=== PATIENT | female | born 1990 | race Caucasian/White ===

== ENCOUNTER 2025-06-21 18:27 | Inpatient (IN) | payer MEDICAID, OTHER ==
[~2025-06-21] VITALS: Ht 172.7 cm; Wt 108.6 kg
[2025-06-21] MEDS ORDERED: WITCH HAZEL-GLYCERIN PAD TOP PRN (19:45)
[2025-06-21 19:54] LABS: Hematocrit 30.2 % (36.0-46.0); Hemoglobin 9.2 g/dL (12.2-16.2); Mean Corpuscular Hemoglobin 22.5 pg (28.0-32.0); Mean Corpuscular Volume 73.5 fL (80.0-100.0); Nucleated Red Blood Cells % 0.4 %
--- NOTE | 2025-06-21 19:58 | LDN2 ---
Labor and Delivery Note Date 06/21/25 Age 34 2 Para 1->2 EDC 07/19/2025 EGA 36w0d Diagnosis , compound hand presentation Vaginal Delivery: VTX Vacuum Assisted: No Placenta: Spontaneous (jitendra) Sex: Female Weight 3070g / 6 lbs, 12 oz Apgars 8/8 Nuchal Cord Transected: No Amniotic Fluid: Clear Anesthesia local lidocaine Episiotomy: No Extension: No Repaired with 3-[address]-1 EBL 200mL in drape Labs Laboratory Tests 06/21/25 18:31: Comments/Significant Med Raman At 1849 this 34yo now delivered a viable Female infant by w/ APGARS 8/8. LUCERO with compound presentation of the R hand. taken immediately to warmer to be seen by NICU team and at patient's request Cord blood sent. Intact 3-vessel cord and intact placenta (Jitendra), delivered spontaneously Pitocin IV bolus started. Placenta sent to pathology. Patient pain was well managed Cervix inspected and intact. Perineum intact. R labial laceration noted and repaired in the usual fashion after administration of local lidocaine. Rectal mucosa and sphincter intact. Fundus at U, firm, midline, and light lochia. Straight catheter for 150 mL of clear urine. QBL 200ml in drape. Maternal BPs elevated and labile. Count correct x2. Patient to care and baby to nursery for pending transfer and safe surrender Visit Coding OBGYN Date of Service: Jun 21, 2025 Billing Provider: MITCHELL GENTILE CNM PATIENT CARE TECHNICIAN INSTRUCTOR Common Visit Codes: [id number] INP/OBS CARE (HIGH) PATIENT CARE TECHNICIAN INSTRUCTOR Procedure Codes: 23524-EUR DEL INCLUDING MITCHELL GENTILE CNM Jun 21, 2025 19:58
[2025-06-21 20:00] LABS: Urine Protein, UAD 3+ (Negative)
[2025-06-21] MEDS ORDERED: hydrALAZINE HCL 20 MG/ML VL IV ONE (20:00)
[2025-06-21] MEDS: LIDOCAINE 2%HCL (LOCAL ANESTH.) INJ 20ML MDV IJ PRN (20:04)
[2025-06-21] MEDS: LACTATED RINGER'S 1,000 ML IV SCH (20:04)
[2025-06-21 20:05] LABS: Cannabinoid Screen, Urine Neg (NEGATIVE)
[2025-06-21 20:09] LABS: Alanine Aminotransferase 16 U/L (7-40); Anion Gap 12 (5-15); BUN/Creatinine Ratio 20.0 (10.0-20.0); Glucose 92 mg/dL (74-106); Potassium 3.7 mmol/L (3.5-5.1); Sodium 139 mmol/L (136-145)
[2025-06-21 20:10] LABS: Albumin 3.1 g/dL (3.2-4.8); Alkaline Phosphatase 231 U/L (46-116); Bilirubin, Total 0.2 mg/dL (0.2-1.0); Blood Urea Nitrogen 24 mg/dL (9-23); Calcium 8.1 mg/dL (8.7-10.4); Carbon Dioxide 19 mmol/L (20-31); Chloride 108 mmol/L (98-107); INR 0.86 (0.9-1.15); Partial Thromboplastin Time 26.2 SEC (24.5-34.5); Prothrombin Time 9.3 sec (9.3-11.8); Total Protein 5.7 g/dL (5.7-8.2); Uric Acid 9.8 mg/dL (3.1-7.8)
[2025-06-21 20:10] LABS: Amphetamine Screen, Urine Pos (NEGATIVE); Barbiturate Scree,Urine Neg (NEGATIVE); Benzodiazephine Screen, Urine Neg (NEGATIVE); Cocaine Screen, Urine Neg (NEGATIVE); Opiate Scree,Urine Neg (NEGATIVE); Phencyclidine Screen, Urine Neg (NEGATIVE)
[2025-06-21] MEDS: DERMOPLAST 60ML BOTTLE TOP PRN (20:24)
[2025-06-21] MEDS: IBUPROFEN 600 MG TAB PO PRN (20:24)
[2025-06-21] MEDS: PHISODERM TOP SOLN 240ML BTL TOP PRN (20:24)
[2025-06-21] MEDS: LACT. RINGERS/OXYTOCIN 20UNITS 500 ML IV ONE ×2 (21:18→21:19)
[2025-06-21] MEDS: MAGNESIUM SULFATE 40MG/ML 1,000 ML IV SCH (21:58)
--- NOTE | 2025-06-21 22:33 | DVH ---
INDICATION: Swelling on bilateral lower extremities TECHNIQUE: Frontal view of the chest. COMPARISON: None FINDINGS/IMPRESSION: The lungs are clear. The cardiomediastinal silhouette is unremarkable. No pleural effusion or pneumothorax. No acute osseous abnormality.
[2025-06-21] MEDS: ACETAMINOPHEN 325 MG TAB PO PRN (22:35)
[2025-06-21 23:00] VITALS: BP 141/89; PULSE 86; RESP 18; TEMP 97.9; O2SAT 100
[2025-06-22] VITALS (43 sets, daily range): BP systolic 106–148; BP diastolic 31–93; PULSE 72–101; RESP 12–24; TEMP 96.5–98.3; O2SAT 96–100
--- NOTE | 2025-06-22 01:41 | DVHPN2 ---
Progress Note Date Seen: Jun 22, 2025 Subjective Shanice is resting in bed SUBJECTIVE -Lochia minimal -Tolerating regular diet well. -Pain relieved with oral medication PRN -Not ambulating at this time r/t magnesium infusion. Torres catheter in place -Passing flatus but no BM yet -Would like to suppress vital signs Vital Sign Date Time Temp Pulse Resp B/P (MAP) Pulse Ox O2 Delivery O2 Flow Rate FiO2 06/22/25 00:00 16 98 Room Air 06/21/25 23:00 97.9 86 141/89 (106) 97.9 Total Intake and Output 06/21/25 06/21/25 06/22/25 15:00 23:00 07:00 Intake Total 125 ml 125 ml Output Total 100 ml 95 ml Balance 25 ml 30 ml medications Current Medications Medications Dose Ordered Sig/Gonzalo Route Start Time Stop Time Status Last Admin Dose Admin Lactated Ringer's 1,000 ml @ 125 mls/hr Q8H IV 06/21/25 19:45 06/21/25 20:04 125 MLS/HR Witch Akiko 1 pad PRN PRN TOP 06/21/25 19:45 Sodium Lauryl Sulfate 240 ml PRN PRN TOP 06/21/25 19:45 06/21/25 20:24 240 ML Benzocaine 1 applic PRN PRN TOP 06/21/25 19:45 06/21/25 20:24 1 APPLIC Lidocaine HCl 20 ml ONCE PRN IJ 06/21/25 19:45 06/21/25 20:04 20 ML Ibuprofen 600 mg Q6HP PRN PO 06/21/25 19:45 06/21/25 20:24 600 MG Acetaminophen 650 mg Q4HP PRN PO 06/21/25 19:45 06/21/25 22:35 650 MG Magnesium Sulfate 1,000 ml @ 50 mls/hr Q20H IV 06/21/25 21:30 06/21/25 21:58 50 MLS/HR laboratory and microbiology Laboratory Tests 06/21/25 18:31 Test 06/21/25 18:31 Range/Units Serum Glucose 92 74-106 mg/dL Objective OBJECTIVE -A&O x4. No apparent distress. Affect appropriate -Afebrile, VSS -Chest: heart and lung sounds normal. -Breasts: Nipples intact w/o cracks or soreness -Abdomen: normal BS, soft, non-tender, no rebound or guarding, fundus firm @ U- 1, lochia minimal -Perineum: deferred -Extremities: no edema or tenderness Problems(with codes): (1) Normal spontaneous vaginal delivery (2) Laceration of labia minora (3) Methamphetamine abuse Assessment/Plan ASSESSMENT -34 yo now ppd #1 s/p doing well. - Suppression -No care -Drug Use in (methamphetamine, heroin, THC, DMT) PLAN -Consulting with Dr Lauren. -Continue pain management with oral medications as previously ordered -Increase fluid intake and fiber in diet to promote regular bowel movements, Laxative PRN -Discussed suppression. Answered all patient questions and concerns. -Order social service consult -Continue routine care Plan discussed with: Patient Visit Coding OBGYN Date of Service: Jun 22, 2025 Billing Provider: MITCHELL GENTILE CNM HEATER MECHANIC Common Visit Codes: [id number] INP/OBS CARE(MOD) MITCHELL GENTILE CNM Jun 22, 2025 01:41
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
--- NOTE | 2025-06-22 03:52 | ECG ---
[facility] Test Date: 2025-06-22 Test Time: 03:44:31 Pat Name: FROY LEOS Department: ED Room: [facility] Gender: F Internal Communications Writer: CIARA : 1990 Requested By: MITCHELL GENTILE Order Number: [id number] Reading MD: Lamine Mathew Measurements Intervals [place] Rate: 93 P: 56 [place]: 139 QRS: 62 QRSD: 94 T: 45 QT: 384 QTc: 478 Interpretive Statements Sinus rhythm Borderline T abnormalities, anterior leads Borderline prolonged QT interval Electronically Signed On 06-28-2025 18:55:34 PST by Lamine Mathew Please click the below link to view image of tracing.
[2025-06-22] MEDS: MAGNESIUM SULFATE 100 ML IV ONE (04:38)
[2025-06-22] MEDS ORDERED: ONDANSETRON HCL 4 MG/2 ML VIAL IV PRN (07:00)
[2025-06-22] MEDS: LABETALOL HCL 200 MG TAB PO SCH (07:46)
--- NOTE | 2025-06-22 08:42 | DVHHP2 ---
Review of Systems Allergies: Coded Allergies: NO KNOWN ALLERGIES (Unverified , 06/21/25) Medications Current Medications Medications Dose Ordered Sig/Gonzalo Route Start Time Stop Time Status Last Admin Dose Admin Lactated Ringer's 1,000 ml @ 125 mls/hr Q8H IV 06/21/25 19:45 06/21/25 20:04 125 MLS/HR Witch Akiko 1 pad PRN PRN TOP 06/21/25 19:45 Sodium Lauryl Sulfate 240 ml PRN PRN TOP 06/21/25 19:45 06/21/25 20:24 240 ML Benzocaine 1 applic PRN PRN TOP 06/21/25 19:45 06/21/25 20:24 1 APPLIC Lidocaine HCl 20 ml ONCE PRN IJ 06/21/25 19:45 06/21/25 20:04 20 ML Ibuprofen 600 mg Q6HP PRN PO 06/21/25 19:45 06/21/25 20:24 600 MG Acetaminophen 650 mg Q4HP PRN PO 06/21/25 19:45 06/21/25 22:35 650 MG Magnesium Sulfate 1,000 ml @ 50 mls/hr Q20H IV 06/21/25 21:30 06/21/25 21:58 50 MLS/HR Ondansetron HCl 4 mg Q4HPRN PRN IV 06/22/25 07:00 Labetalol HCl 300 mg Q12HR PO 06/22/25 10:00 06/22/25 07:46 300 MG Exam Vital Signs Vital Signs Date Time Temp Pulse Resp B/P (MAP) Pulse Ox O2 Delivery O2 Flow Rate FiO2 06/22/25 07:46 104 158/91 06/22/25 05:00 16 100 06/22/25 05:00 Room Air 06/22/25 03:00 98.1 98.1 Labs/Xrays Labs Test 06/22/25 07:05 06/22/25 03:49 06/21/25 21:01 06/21/25 19:30 Range/Units Troponin I High Sensitivity 8 </=34 ng/L Magnesium Lvl (Mg Sulfate Therapy) 4.34 4.0-7.1 mg/dL B-Type Natriuretic Peptide 159.19 0-100 pg/mL Uric Acid 9.8 H 3.1-7.8 mg/dL Urine Color Yellow Yellow Urine Clarity Turbid H Clear Urine pH 6.0 5.0-9.0 Urine Specific [place] 1.039 H 1.001-1.035 Urine Protein 3+ H Negative Urine Ketones Negative Negative Urine Blood 2+ H Negative /uL Urine Nitrite Negative Negative Urine Bilirubin Negative Negative Urine Urobilinogen Normal Negative mg/dL Urine Leukocyte Esterase Negative Negative /uL Urine RBC 45 0 - 4 /hpf Urine Microscopic WBC 36 H 0-5 /HPF Urine Squamous Epithelial Cells None seen <5 /hpf Urine Bacteria Many H None Seen /hpf Urine Mucus Few None Seen Urine Creatinine 220.36 H 30.0-125.0 mg/dL Urine Protein/Creatinine Ratio 8.52 Urine Glucose Normal Normal mg/dL Urine Total Protein 1878.1 H 1-14 mg/dL Urine Opiates Screen Neg NEGATIVE Urine Fentanyl Screen Neg NEGATIVE Urine Barbiturates Screen Neg NEGATIVE Urine Phencyclidine Screen Neg NEGATIVE Urine Amphetamines Screen Pos NEGATIVE Urine Benzodiazepines Screen Neg NEGATIVE Urine Cocaine Screen Neg NEGATIVE Urine Cannabinoids Screen Neg NEGATIVE Test 06/21/25 18:31 Range/Units White Blood Count 14.4 H 4.4-10.8 10^3/uL Red Blood Count 4.11 4.0-5.20 10^6/uL Hemoglobin 9.2 L 12.2-16.2 g/dL Hematocrit 30.2 L 36.0-46.0 % Mean Corpuscular Volume 73.5 L 80.0-100.0 fL Mean Corpuscular Hemoglobin 22.5 L 28.0-32.0 pg Mean Corpuscular Hemoglobin Concent 30.6 L 32.0-36.0 g/dL Red Cell Distribution Width 17.9 H 11.8-14.3 % Platelet Count 360 140-450 10^3/uL Mean Platelet Volume 9.1 6.9-10.8 fL Neutrophils (%) (Auto) 69.3 37.0-80.0 % Lymphocytes (%) (Auto) 23.8 10.0-50.0 % Monocytes (%) (Auto) 5.9 0.0-12.0 % Eosinophils (%) (Auto) 0.3 0.0-7.0 % Basophils (%) (Auto) 0.7 0.0-2.0 % Neutrophils # (Auto) 10.0 H 1.6-8.6 10 ^3/uL Lymphocytes # (Auto) 3.4 0.4-5.4 10 ^3/uL Monocytes # (Auto) 0.8 0-1.3 10 ^3/uL Eosinophils # (Auto) 0 0-0.8 10 ^3/uL Basophils # (Auto) 0.1 0-0.2 10 ^3/uL Nucleated Red Blood Cells 0.4 % Prothrombin Time 9.3 9.3-11.8 sec Prothrombin Time INR 0.86 L 0.9-1.15 Activated Partial Thromboplast Time 26.2 24.5-34.5 SEC Sodium Level 139 136-145 mmol/L Potassium Level 3.7 3.5-5.1 mmol/L Chloride Level 108 H 98-107 mmol/L Carbon Dioxide Level 19 L 20-31 mmol/L Anion Gap 12 5-15 Blood Urea Nitrogen 24 H 9-23 mg/dL Creatinine 1.20 H 0.550-1.02 mg/dL Glomerular Filtration Rate Calc 61 >90 mL/min BUN/Creatinine Ratio 20.0 10.0-20.0 Serum Glucose 92 74-106 mg/dL Calcium Level 8.1 L 8.7-10.4 mg/dL Total Bilirubin 0.2 0.2-1.0 mg/dL Aspartate Amino Transferase (AST) 28 13-40 U/L Alanine Aminotransferase (ALT) 16 7-40 U/L Alkaline Phosphatase 231 H 46-116 U/L Total Protein 5.7 5.7-8.2 g/dL Albumin 3.1 L 3.2-4.8 g/dL Treponema pallidum Antibody Non-reactive Negative Hepatitis B Surface Antigen Negative Negative Hepatitis C Antibody Negative Negative HIV (1&2) Antibody Negative Negative Rubella Antibody Positive SEPSIS Sepsis Screen Physician Orders Magnesium,Therapeutic (06/22/25 10:00) Magnesium,Therapeutic (06/22/25 16:00) Magnesium,Therapeutic (06/22/25 22:00) Ondansetron Hcl (Zofran) (06/22/25 07:00) Labetalol Hcl Tablet (Normodyne Tablet) (06/22/25 10:00) Vital Signs Date Time Temp Pulse Resp B/P (MAP) Pulse Ox O2 Delivery O2 Flow Rate FiO2 06/22/25 07:46 104 158/91 06/22/25 05:00 83 16 145/93 (110) 100 06/22/25 05:00 18 100 Room Air 06/22/25 04:00 83 16 136/76 (96) 100 06/22/25 04:00 16 100 Room Air 06/22/25 03:00 15 99 Room Air 06/22/25 03:00 98.1 85 19 147/80 (102) 100 98.1 06/22/25 02:00 97.6 87 15 136/82 (100) 100 97.6 06/22/25 02:00 18 99 Room Air 06/22/25 01:00 98.1 89 16 147/82 (103) 98 98.1 06/22/25 01:00 15 100 Room Air Medications Medications Dose Ordered Sig/Gonzalo Route Start Time Stop Time Status Last Admin Dose Admin Labetalol HCl 300 mg Q12HR PO 06/22/25 10:00 06/22/25 07:46 300 MG Magnesium Sulfate 100 ml @ 300 mls/hr ONCE ONCE IV 06/22/25 04:30 06/22/25 04:49 DC 06/22/25 04:38 300 MLS/HR Magnesium Sulfate 1,000 ml @ 50 mls/hr Q20H IV 06/21/25 21:30 06/21/25 21:58 50 MLS/HR JUAN JOSÉ REEVES [facility] Jun 22, 2025 08:42
[2025-06-22] MEDS: hydroCHLOROthiazide 25 MG TAB PO ONE (08:45)
[2025-06-22 10:21] LABS: Nucleated Red Blood Cells % 0.2 %
[2025-06-22 10:24] LABS: Hematocrit 19.3 % (36.0-46.0); Mean Corpuscular Hemoglobin 22.5 pg (28.0-32.0); Mean Corpuscular Volume 74.0 fL (80.0-100.0)
[2025-06-22 10:30] LABS: Hemoglobin 5.9 g/dL (12.2-16.2)
[2025-06-22 10:39] LABS: Alanine Aminotransferase 15 U/L (7-40); Anion Gap 8 (5-15); BUN/Creatinine Ratio 17.6 (10.0-20.0); Blood Urea Nitrogen 19 mg/dL (9-23); Carbon Dioxide 20 mmol/L (20-31); Glucose 101 mg/dL (74-106); Potassium 4.9 mmol/L (3.5-5.1); Sodium 136 mmol/L (136-145)
[2025-06-22 10:40] LABS: Albumin 2.3 g/dL (3.2-4.8); Alkaline Phosphatase 135 U/L (46-116); Calcium 7.3 mg/dL (8.7-10.4); Chloride 108 mmol/L (98-107); Total Protein 4.2 g/dL (5.7-8.2); Uric Acid 9.9 mg/dL (3.1-7.8)
--- NOTE | 2025-06-22 10:40 | DVHINCON2 ---
Date of service: Jun 22, [address] Lauren Reason for Consultation Medical co-management & blood pressure management with preeclampsia History of Present Illness History Source: Patient, RN Notes, Notes HPI 34-year-old female with no documented past medical history and surgical history notable only for two prior abortions, 4 para 2 A2, presented to the ED on August 19, 2024, approximately 30 weeks , where she was found to be in active labor. She walked into the ED front entrance and delivered precipitously. Delivery was completed in the [facility] unit. The patient reports she received no care, although she was aware of the and [facility] attempting to pursue an but was unable to follow through. She delivered a viable at 18:49 PM, and the was transferred for safe surrender and subsequently transferred out. Post-delivery, the patient has been resting in OB without significant pain. She reports no vaginal bleeding except for mild old blood staining and some vaginal swelling. She denies chest pain, shortness of breath, headache, or vision changes. Her blood pressure after delivery was 158/91, and she was diagnosed with preeclampsia, started on labetalol 300 mg PO BID, and placed on a magnesium sulfate drip (last level 4.34). Laboratory review from yesterday shows creatinine 1.2, hemoglobin 9.2 / Hct 30.2, platelets 360, estimated blood loss approximately 500 mL, and EKG with normal sinus rhythm. Troponin x3 was negative. White blood cell count was 14.4. LFTs notable for alkaline phosphatase 231, albumin 3.1. Syphilis and hepatitis panel negative. Chest x-ray unremarkable. She denies chest pain, headache, neck pain, or fever. The patient does admit to methamphetamine and marijuana use yesterday and smokes daily. [employer] requested medicine involvement for assistance with blood pressure management and medical co-management . Current Meds no medication Chief Complaint of Abdominal/F: Other (no abd pain ) Chest Pain Chief Complaint: Other (no chest pain ) Initial Comment denies any back pain Initial Comment denies any headache Initial Comment denies any co Past Medical History Cardiac: No pertinent Hx Pulmonary: No pertinent Hx Central Nervous System: No pertinent Hx GI: No pertinent Hx Hemotology/Oncology: No pertinent Hx Hepatobiliary: No pertinent Hx Psychiatric: No pertinent Hx Musculoskeletal: No pertinent Hx Rheumotologic: No pertinent Hx Infectious Disease: No peritnent Hx ENT: No pertinent Hx Renal/: No pertinent Hx Endocrine: No pertinent Hx Dermatology: No pertinent Hx Past Surgical History: No pertinent Hx Family History: No pertinent Hx Smoker: No Hx (Negative) Occupation: unemployed Alocohol: None Drugs: Marijuana, Amphetimines, Other (last use yesterday prior to use ) Lives with: Alone Review of Systems Constitutional: No symptom reported Ears, Nose, & Throat: No symptom reported Eyes: No symptom reported Pulmonary/Respiratory: No symptom reported Cardiovascular: No symptom reported Gastrointestinal: No symptom reported Genitourinary: No symptom reported Musculoskeletal: No symptom reported Skin: No symptom reported Psychiatric: No symptom reported Endocrine: No symptom reported Hemotologic/Lymphatic: No symptom reported H&P Exam Vital Signs Vital Signs Date Time Temp Pulse Resp B/P (MAP) Pulse Ox O2 Delivery O2 Flow Rate FiO2 06/22/25 09:09 16 Room Air 06/22/25 08:46 88 126/83 06/22/25 07:00 98.2 100 98.2 General Appeara: Well developed Head Exam: Normal inspection Neck Exam: Normal inspection Eye Exam: bilateral eye Normal inspection, bilateral eye PERRL, bilateral eye EOMI Nasal Exam: Normal inspection Mouth: Normal Inspection Pulmonary/Respiratory: Normal inspection Cardiovascular/Chest: Normal inspection Abdominal Exam: Normal bowel sounds Abdominal Pain Onset Location: RUQ, LUQ, RLQ, LLQ Back Exam: Normal inspection Pelvic Exam: External exam normal, Blood, Other (some vaginal swelling seen no active bleeding ) Shoulder Exam: Normal inspection Elbow/Forearm Exam: Normal inspection Wrist Exam: Normal inspection Hand Exam: Normal inspection Legs: bilateral leg non-tender, bilateral leg normal inspection, bilateral leg normal range of motion, bilateral leg no evidence of injury Knees: bilateral knee non-tender, bilateral knee normal inspection, bilateral knee normal range of motion, bilateral knee no evidence of injury Ankle Exam: bilateral ankle Normal inspection, bilateral ankle Non-tender, bilateral ankle Normal range of motion, bilateral ankle No evidence of injury Foot: bilateral foot non-tender, bilateral foot normal inspection, bilateral foot normal range of motion, bilateral foot no evidence of injury Tendon/ Neuro: 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 Exam: Normal hearing, Normal speech, PERRL Motor/Sensory: Normal sensory function, Normal motor function, Negative Babinski's sign Deep Tendon Ref: All intact Neuro/Mental St: Alert, Oriented Appearance: Appropriate appearance, Appropriate insight Eye contact/ Speech: Cooperative, Good eye contact, Normal speech Coordination/Gait: Normal finger->nose, Normal gait, Negative Romberg's sign Skin Exam: Normal inspection, Normal color, Warm/dry Lymphatic: Normal inspection Wounds no wounds Labs/Xrays I reviewed labs, imaging CT scan abdomen pelvis, EKG and all diagnostic studies on this patient from ED records and the medical chart Labs Test 06/22/25 09:49 06/22/25 07:05 06/21/25 19:30 06/21/25 18:31 Range/Units Troponin I High Sensitivity 8 </=34 ng/L Urine Color Yellow Yellow Urine Clarity Turbid H Clear Urine pH 6.0 5.0-9.0 Urine Specific [place] 1.039 H 1.001-1.035 Urine Protein 3+ H Negative Urine Ketones Negative Negative Urine Blood 2+ H Negative /uL Urine Nitrite Negative Negative Urine Bilirubin Negative Negative Urine Urobilinogen Normal Negative mg/dL Urine Leukocyte Esterase Negative Negative /uL Urine RBC 45 0 - 4 /hpf Urine Microscopic WBC 36 H 0-5 /HPF Urine Squamous Epithelial Cells None seen <5 /hpf Urine Bacteria Many H None Seen /hpf Urine Mucus Few None Seen Urine Creatinine 220.36 H 30.0-125.0 mg/dL Urine Protein/Creatinine Ratio 8.52 Urine Glucose Normal Normal mg/dL Urine Total Protein 1878.1 H 1-14 mg/dL Urine Opiates Screen Neg NEGATIVE Urine Fentanyl Screen Neg NEGATIVE Urine Barbiturates Screen Neg NEGATIVE Urine Phencyclidine Screen Neg NEGATIVE Urine Amphetamines Screen Pos NEGATIVE Urine Benzodiazepines Screen Neg NEGATIVE Urine Cocaine Screen Neg NEGATIVE Urine Cannabinoids Screen Neg NEGATIVE Eosinophils (%) (Auto) 0.3 0.0-7.0 % Eosinophils # (Auto) 0 0-0.8 10 ^3/uL Basophils # (Auto) 0.1 0-0.2 10 ^3/uL Nucleated Red Blood Cells 0.4 % Treponema pallidum Antibody Non-reactive Negative Hepatitis B Surface Antigen Negative Negative Hepatitis C Antibody Negative Negative HIV (1&2) Antibody Negative Negative Rubella Antibody Positive Assessment/Plan Primary Diagnosis Preeclampsia BP 158/91 ; currently on magnesium sulfate infusion. Continue labetalol 300 mg PO BID. Add hydrochlorothiazide 12.5 mg PO daily for additional BP control. Monitor for severe features: headache, vision changes, RUQ pain, worsening BP. Trend BPs every 4 hours. Continue magnesium infusion per OB protocol; monitor magnesium levels. Avoid NSAIDs due to BP elevation risk. Status, Vaginal Delivery EBL 500 mL; stable course. Monitor for delayed hemorrhage, excessive lochia, infection, or worsening vaginal swelling. Continue routine care per OB. A2 pt delivered baby 06/22/25 at 1849 but baby was sent to [facility] no care prior to delivery Anemia of / Hgb 9.2, stable; no active bleeding. Repeat CBC in AM. Consider iron supplementation when stable. acute leukocytosis likley acute phase reactant from post fu cbc monitor for fever if + infectious workup polySubstance Use (Methamphetamine & Marijuana) Patient admits use the day prior to delivery. No acute intoxication signs now. Provide counseling; social work involvement recommended. Monitor for withdrawal, though unlikely with meth. Elevated LFTs (Alk Phos 231) Likely -related or due to physiologic elevation. Trend CMP, LDH, uric acid. No evidence of HELLP syndrome today. Leukocytosis WBC 14.4; could be physiologic or stress-related. No fever, no infectious symptoms. Repeat CBC in AM; monitor clinically. Hypoalbuminemia Albumin 3.1; likely chronic nutritional or -related. No acute intervention required. DISPOSITION Patient is medically stable and will continue care under OB with Internal Medicine following for blood pressure and lab monitoring. Continue magnesium therapy and antihypertensives. Internal Medicine will follow daily. Plan discussed with: Patient JUAN JOSÉ REEVES Ness HOGN Jun 22, 2025 10:40
[2025-06-22 10:41] LABS: INR 0.83 (0.9-1.15); Partial Thromboplastin Time 27.6 SEC (24.5-34.5); Prothrombin Time 9.0 sec (9.3-11.8)
[2025-06-22 10:45] LABS: Bilirubin, Total 0.2 mg/dL (0.2-1.0)
[2025-06-22 11:01] LABS: Fibrinogen 565.0 mg/dL (177-375)
[2025-06-22 11:27] LABS: Hematocrit 19.7 % (36.0-46.0)
[2025-06-22 11:28] LABS: Hemoglobin 6.0 g/dL (12.2-16.2)
[2025-06-22] MEDS ORDERED: TRANEXAMIC ACID 1,000 mg/10ml INJ VIAL IV ONE (12:27)
--- NOTE | 2025-06-22 15:29 | DVH ---
EXAM: XY CHEST XRAY 1 VIEW HISTORY: preeclampsia COMPARISON: XY CHEST PORTABLE on DOS: 06/21/25 TECHNIQUE: Portable supine AP view of the chest was performed. FINDINGS: No pneumothorax, consolidative infiltrates, or pulmonary edema. The heart is not enlarged. IMPRESSION: No acute intrathoracic process.
[2025-06-22] MEDS: MAGNESIUM SULFATE 40MG/ML 1,000 ML IV SCH ×2 (17:00→18:30)
[2025-06-22] MEDS: LACTATED RINGER'S 1,000 ML IV SCH (17:00)
[2025-06-22 18:21] LABS: COVID19 ANTIGEN SOFIA FIA NEGATIVE (NEGATIVE)
[2025-06-22] MEDS: FLUTICASONE PROP NASAL SPR 0.05 % (50MCG) 16GM EACHNOSTRI SCH (22:05)
[2025-06-22 22:21] LABS: Hematocrit 26.2 % (36.0-46.0); Hemoglobin 8.3 g/dL (12.2-16.2); Mean Corpuscular Hemoglobin 24.6 pg (28.0-32.0); Mean Corpuscular Volume 77.8 fL (80.0-100.0); Nucleated Red Blood Cells % 0.7 %
[2025-06-23] VITALS (37 sets, daily range): BP systolic 103–152; BP diastolic 41–93; PULSE 62–111; RESP 11–23; TEMP 97.4–98.8; O2SAT 89–100
[2025-06-23 02:53] LABS: Hematocrit 22.3 % (36.0-46.0); Hemoglobin 7.3 g/dL (12.2-16.2); Mean Corpuscular Volume 76.7 fL (80.0-100.0); Nucleated Red Blood Cells % 0.4 %
[2025-06-23 02:57] LABS: Mean Corpuscular Hemoglobin 24.9 pg (28.0-32.0)
[2025-06-23 03:12] LABS: Alanine Aminotransferase 13 U/L (7-40); Anion Gap 9 (5-15); BUN/Creatinine Ratio 18.3 (10.0-20.0); Blood Urea Nitrogen 17 mg/dL (9-23); Carbon Dioxide 20 mmol/L (20-31); Potassium 4.6 mmol/L (3.5-5.1); Sodium 138 mmol/L (136-145)
[2025-06-23 03:20] LABS: Magnesium 3.3 mg/dL (1.6-2.6)
[2025-06-23 03:21] LABS: Albumin 2.3 g/dL (3.2-4.8); Alkaline Phosphatase 119 U/L (46-116); Bilirubin, Total 0.2 mg/dL (0.2-1.0); Calcium 7.0 mg/dL (8.7-10.4); Chloride 109 mmol/L (98-107); Glucose 112 mg/dL (74-106); Total Protein 4.2 g/dL (5.7-8.2); Uric Acid 9.5 mg/dL (3.1-7.8)
[2025-06-23] MEDS: LORATADINE 10 MG TAB PO SCH (09:07)
--- NOTE | 2025-06-23 09:35 | DVHPN2 ---
Progress Note Date Seen: Jun 23, 2025 Subjective PPD#2 s/p delivery, no PNL care. s/p # Pre eclampsia w/ severe features (based on serum creat 1.2), improving # Severe acute blood loss anemia , s/p blood transfusion # Amphetamine drug use vital signs Vital Sign Date Time Temp Pulse Resp B/P (MAP) Pulse Ox O2 Delivery O2 Flow Rate FiO2 06/23/25 09:15 75 18 132/64 (86) 100 06/23/25 08:00 Room Air* 0 21 06/23/25 08:00 97.9 97.9 Total Intake and Output 06/22/25 06/22/25 06/23/25 15:00 23:00 07:00 Intake Total 1575 ml 1250 ml Output Total 575 ml 600 ml 2050 ml Balance -575 ml 975 ml -800 ml medications Current Medications Medications Dose Ordered Sig/Gonzalo Route Start Time Stop Time Status Last Admin Dose Admin Mariya Tyel 1 pad PRN PRN TOP 06/21/25 19:45 Sodium Lauryl Sulfate 240 ml PRN PRN TOP 06/21/25 19:45 06/21/25 20:24 240 ML Benzocaine 1 applic PRN PRN TOP 06/21/25 19:45 06/21/25 20:24 1 APPLIC Lidocaine HCl 20 ml ONCE PRN IJ 06/21/25 19:45 06/21/25 20:04 20 ML Ibuprofen 600 mg Q6HP PRN PO 06/21/25 19:45 06/22/25 22:41 600 MG Acetaminophen 650 mg Q4HP PRN PO 06/21/25 19:45 06/22/25 18:53 650 MG Ondansetron HCl 4 mg Q4HPRN PRN IV 06/22/25 07:00 Labetalol HCl 300 mg Q12HR PO 06/22/25 10:00 06/23/25 09:07 300 MG Lactated Ringer's 1,000 ml @ 50 mls/hr Q20H IV 06/22/25 11:15 06/22/25 17:00 50 MLS/HR Fluticasone Propionate 50 mcg Q12HR EACHNOSTRI 06/22/25 22:00 06/23/25 09:06 50 MCG Loratadine 10 mg DAILY PO 06/23/25 10:00 06/23/25 09:07 10 MG laboratory and microbiology Laboratory Tests 06/23/25 02:23 Test 06/23/25 02:23 Range/Units Serum Glucose 112 H 74-106 mg/dL Objective O: AFVSS NO SEVERE RANGE ELEVATED BP's Chest: heart and lung sounds normal. Abd soft, non-tender, fundus firm, BS, no rebound or guarding, Ext Neg Homans, Non-tender, edema Lochia - minimal Labs Reviewed, improving creatinine now normal CXR neg x 2 Assessment/Plan PPD#2 s/p # Pre eclampsia w/ severe features , greatly improved - Serum creatinine normalized, no evidence of HELLP or severe range BP's - Continue Labetalol PO - Mag Sulfate stopped x 24hr # Severe acute blood loss anemia - s/p blood transfusion - check CBC this morning #Amphetamine drug use - pending social svc consult Step down care appropriate to med surg or D/C planning in next 24-48hr if remains stable. Plan discussed with: Patient Visit Coding OBGYN Date of Service: Jun 23, 2025 Billing Provider: BLADIMIR YEH DO DIRECTOR OF VOCATIONAL TRAINING Common Visit Codes: [id number] INP/OBS CARE (HIGH) BLADIMIR YEH DO Jun 23, 2025 09:34
[2025-06-23] MEDS ORDERED: hydroCHLOROthiazide 25 MG TAB PO SCH (10:00)
[2025-06-23 10:34] LABS: Hematocrit 23.6 % (36.0-46.0); Hemoglobin 7.6 g/dL (12.2-16.2); Mean Corpuscular Hemoglobin 24.7 pg (28.0-32.0); Mean Corpuscular Volume 76.8 fL (80.0-100.0); Nucleated Red Blood Cells % 0.1 %
--- NOTE | 2025-06-23 17:06 | DVHPN2 ---
Subjective rested/no tremors/no agitation Changes from previous H/P or p: No Changes Objective Vitals Vital Signs Date Time Temp Pulse Resp B/P (MAP) Pulse Ox O2 Delivery O2 Flow Rate FiO2 06/23/25 16:00 98.8 85 18 134/84 (101) 100 98.8 06/23/25 08:00 Room Air* 0 21 Intake/Output Intake and Output 06/23/25 07:00 Intake Total 2875 ml Output Total 3225 ml Balance -350 ml Intake Oral 900 ml IV Total 775 ml Blood Product 1200 ml Output Urine Total 3225 ml General Appearance: Alert, Oriented X3, Cooperative, No acute distress Lungs: Clear to auscultation Cardiovascular: Regular rate, Normal S1, Normal S2 Abdomen: Normal bowel sounds, Soft, No tenderness, No hepatospenomegaly Musculoskeletal: Normal sensory function, Normal motor function Neuro: Normal gait, Normal speech, Strength at 5/5 X4 ext, Normal tone, S ensation intact, Cranial nerves 3-12 NL Psych/Mental Status: Mental status NL, Mood NL Medications Current Medications Medications Dose Ordered Sig/Gonzalo Route Start Time Stop Time Status Last Admin Dose Admin Witfauzia Akiko 1 pad PRN PRN TOP 06/21/25 19:45 Sodium Lauryl Sulfate 240 ml PRN PRN TOP 06/21/25 19:45 06/21/25 20:24 240 ML Benzocaine 1 applic PRN PRN TOP 06/21/25 19:45 06/21/25 20:24 1 APPLIC Lidocaine HCl 20 ml ONCE PRN IJ 06/21/25 19:45 06/21/25 20:04 20 ML Ibuprofen 600 mg Q6HP PRN PO 06/21/25 19:45 06/22/25 22:41 600 MG Acetaminophen 650 mg Q4HP PRN PO 06/21/25 19:45 06/22/25 18:53 650 MG Ondansetron HCl 4 mg Q4HPRN PRN IV 06/22/25 07:00 Labetalol HCl 300 mg Q12HR PO 06/22/25 10:00 06/23/25 09:07 300 MG Fluticasone Propionate 50 mcg Q12HR EACHNOSTRI 06/22/25 22:00 06/23/25 09:06 50 MCG Loratadine 10 mg DAILY PO 06/23/25 10:00 06/23/25 09:07 10 MG Laboratory Results Laboratory Tests 06/23/25 02:23 06/23/25 10:18 Chemistry Test 06/23/25 02:23 Albumin 2.3 g/dL (3.2-4.8) L Calcium Level 7.0 mg/dL (8.7-10.4) L Magnesium Level 3.3 mg/dL (1.6-2.6) H Phosphorus Level 3.8 mg/dL (2.4-5.1) Total Protein 4.2 g/dL (5.7-8.2) L LFT Test 06/23/25 02:23 Alanine Aminotransferase (ALT) 13 U/L (7-40) Alkaline Phosphatase 119 U/L (46-116) H Aspartate Amino Transferase (AST) 24 U/L (13-40) Total Bilirubin 0.2 mg/dL (0.2-1.0) Urinalysis Test 06/21/25 19:30 Urine Color Yellow (Yellow) Urine Clarity Turbid (Clear) H Urine pH 6.0 (5.0-9.0) Urine Specific [place] 1.039 (1.001-1.035) Urine Protein 3+ (Negative) H Urine Ketones Negative (Negative) Urine Blood 2+ /uL (Negative) H Urine Nitrite Negative (Negative) Urine Bilirubin Negative (Negative) Urine Urobilinogen Normal mg/dL (Negative) Urine Leukocyte Esterase Negative /uL (Negative) Urine RBC 45 /hpf (0 - 4) Urine Microscopic WBC 36 /HPF (0-5) H Urine Squamous Epithelial Cells None seen /hpf (<5) Urine Bacteria Many /hpf (None Seen) H Urine Mucus Few (None Seen) Urine Creatinine 220.36 mg/dL (30.0-125.0) H Urine Protein/Creatinine Ratio 8.52 Urine Glucose Normal mg/dL (Normal) Urine Total Protein 1878.1 mg/dL (1-14) H Microbiology Microbiology Date/Time Source Procedure Growth Status 06/22/25 16:00 Nose MRSA Screen - Final Complete Assessment/Plan Assessment/Plan posrpartum state preeclampsia- resolved/off of mg drip since last might expected blood loss anemia meth abuse- no signs of withdrawl?educated on complications- is planning to attend rehab as op Plan discussed with: Patient, Other Date of Service: Jun 23, 2025 Billing Provider: VERA SWAIN MD Common Visit Codes: [id number] INP/OBS CARE(MOD) VERA SWAIN MD Jun 23, 2025 17:06
[2025-06-24 03:07] VITALS: BP 139/76; PULSE 77; RESP 16; TEMP 97.8; O2SAT 97
[2025-06-24 06:22] LABS: Hematocrit 23.1 % (36.0-46.0); Hemoglobin 7.5 g/dL (12.2-16.2); Mean Corpuscular Hemoglobin 25.0 pg (28.0-32.0); Mean Corpuscular Volume 77.4 fL (80.0-100.0); Nucleated Red Blood Cells % 0.1 %
[2025-06-24 06:34] LABS: Alanine Aminotransferase 17 U/L (7-40); Anion Gap 9 (5-15); BUN/Creatinine Ratio 14.1 (10.0-20.0); Blood Urea Nitrogen 13 mg/dL (9-23); Carbon Dioxide 23 mmol/L (20-31); Glucose 80 mg/dL (74-106); Sodium 142 mmol/L (136-145)
[2025-06-24 07:16] LABS: Albumin 2.5 g/dL (3.2-4.8); Alkaline Phosphatase 123 U/L (46-116); Bilirubin, Total 0.2 mg/dL (0.2-1.0); Calcium 8.0 mg/dL (8.7-10.4); Chloride 110 mmol/L (98-107); Potassium 5.4 mmol/L (3.5-5.1); Total Protein 4.2 g/dL (5.7-8.2)
[2025-06-24 07:26] VITALS: BP 134/74; PULSE 77; RESP 16; TEMP 98.2; O2SAT 97
[2025-06-24] MEDS: FUROSEMIDE 40 MG/4 ML VIAL IV ONE (09:05)
--- NOTE | 2025-06-24 09:05 | DVHPN2 ---
Progress Note Date Seen: Jun 24, 2025 Subjective Asymptomatic. Lochia mild. vital signs Vital Sign Date Time Temp Pulse Resp B/P (MAP) Pulse Ox O2 Delivery O2 Flow Rate FiO2 06/24/25 07:26 Room Air 06/24/25 07:26 98.2 77 16 134/74 (94) 97 98.2 06/23/25 08:00 0 21 Total Intake and Output 06/23/25 06/23/25 06/24/25 15:00 23:00 07:00 Intake Total 100 ml 1450 ml Output Total 1500 ml Balance 100 ml -50 ml medications Current Medications Medications Dose Ordered Sig/Gonzalo Route Start Time Stop Time Status Last Admin Dose Admin Witch Akiko 1 pad PRN PRN TOP 06/21/25 19:45 Sodium Lauryl Sulfate 240 ml PRN PRN TOP 06/21/25 19:45 06/21/25 20:24 240 ML Benzocaine 1 applic PRN PRN TOP 06/21/25 19:45 06/21/25 20:24 1 APPLIC Lidocaine HCl 20 ml ONCE PRN IJ 06/21/25 19:45 06/21/25 20:04 20 ML Ibuprofen 600 mg Q6HP PRN PO 06/21/25 19:45 06/23/25 21:57 600 MG Acetaminophen 650 mg Q4HP PRN PO 06/21/25 19:45 06/22/25 18:53 650 MG Ondansetron HCl 4 mg Q4HPRN PRN IV 06/22/25 07:00 Labetalol HCl 300 mg Q12HR PO 06/22/25 10:00 06/23/25 21:58 300 MG Fluticasone Propionate 50 mcg Q12HR EACHNOSTRI 06/22/25 22:00 06/23/25 21:59 50 MCG Loratadine 10 mg DAILY PO 06/23/25 10:00 06/23/25 09:07 10 MG laboratory and microbiology Laboratory Tests 06/24/25 05:40 Test 06/24/25 05:40 Range/Units Serum Glucose 80 74-106 mg/dL Objective O: AFVSS Chest: heart and lung sounds normal. Abd soft, non-tender, fundus firm, BS, no rebound or guarding, Ext Neg Homans, Non-tender, edema Lochia - minimal Labs Elevated K+ 5.4 Assessment/Plan PPD#2, delivery approx 36 wk Pre-eclampsia w/ Severe features (based on initial serum creat 1.2)- Improving Anemia, acute on chronic -- s/p 2 units PRBC transfusion, stable Hyperkalemia, get EKG and Lasix 40mg IV BID, consult internal medicine service today for further orders D/C planning Plan discussed with: Patient, Other Visit Coding OBGYN Date of Service: Jun 24, 2025 Billing Provider: BLADIMIR YEH DO ACQUISITION ADVISOR Common Visit Codes: [id number] INP/OBS CARE(HIGH) BLADIMIR YEH DO Jun 24, 2025 09:05
--- NOTE | 2025-06-24 09:29 | DVH ---
CHEST RADIOGRAPH Indication: elevated wbc's Technique: Single frontal view of the chest was obtained COMPARISON: XY CHEST XRAY 1 VIEW on DOS: 06/22/25, XY CHEST PORTABLE on DOS: 06/21/25 FINDINGS: Lines and Tubes: None Lungs: Diffuse increased interstitial prominence. Pleura: No effusion.No pneumothorax. Cardiomediastinal contours: Unremarkable Bones: Unremarkable IMPRESSION: Pulmonary vascular congestion versus viral pneumonitis, unchanged.
[2025-06-24 11:22] LABS: Urine Protein, UAD TRACE (Negative)
[2025-06-24 11:30] VITALS: BP 132/82; PULSE 74; RESP 16; TEMP 98.2; O2SAT 98
[2025-06-24 13:27] LABS: Chloride 107 mmol/L (98-107); Potassium 4.3 mmol/L (3.5-5.1); Sodium 141 mmol/L (136-145)
[2025-06-24 13:28] LABS: Anion Gap 8 (5-15); Carbon Dioxide 26 mmol/L (20-31)
[2025-06-24 13:33] LABS: BUN/Creatinine Ratio 11.2 (10.0-20.0); Blood Urea Nitrogen 11 mg/dL (9-23); Glucose 90 mg/dL (74-106)
[2025-06-24 13:34] LABS: Calcium 8.0 mg/dL (8.7-10.4)
[2025-06-24] MEDS ORDERED: FERR325T24 PO (15:04)
[2025-06-24] MEDS ORDERED: LABE200T10 PO (15:04)
[2025-06-24] MEDS ORDERED: DOCU-94 PO (15:04)
[2025-06-24] MEDS ORDERED: IBU600T PO (15:04)
--- NOTE | 2025-06-24 15:13 | DVHDS2 ---
Discharge Summary Date of Admission Jun 21, 2025 at 18:27 Date of Discharge: Jun 24, 2025 Admitting Diagnosis No care, approx 36 wk in spontaneous labor Drug use Anemia Pre eclampsia w/ severe features Labs/Diagnostic Data: Laboratory Results Test 06/24/25 12:52 06/24/25 10:48 06/24/25 05:40 06/23/25 02:23 Sodium Level 141 mmol/L (136-145) Potassium Level 4.3 mmol/L (3.5-5.1) Chloride Level 107 mmol/L (98-107) Carbon Dioxide Level 26 mmol/L (20-31) Anion Gap 8 (5-15) Blood Urea Nitrogen 11 mg/dL (9-23) Creatinine 0.98 mg/dL (0.550-1.02) Glomerular Filtration Rate Calc 78 mL/min (>90) BUN/Creatinine Ratio 11.2 (10.0-20.0) Serum Glucose 90 mg/dL (74-106) Calcium Level 8.0 mg/dL (8.7-10.4) Urine Color Colorless (Yellow) Urine Clarity Clear (Clear) Urine pH 6.5 (5.0-9.0) Urine Specific [place] 1.007 (1.001-1.035) Urine Protein Trace (Negative) Urine Ketones Negative (Negative) Urine Blood 2+ /uL (Negative) Urine Nitrite Negative (Negative) Urine Bilirubin Negative (Negative) Urine Urobilinogen Normal mg/dL (Negative) Urine Leukocyte Esterase Negative /uL (Negative) Urine RBC 32 /hpf (0 - 4) Urine Microscopic WBC 4 /HPF (0-5) Urine Squamous Epithelial Cells Few /hpf (<5) Urine Bacteria Few /hpf (None Seen) Urine Glucose Normal mg/dL (Normal) White Blood Count 17.1 10^3/uL (4.4-10.8) Red Blood Count 2.99 10^6/uL (4.0-5.20) Hemoglobin 7.5 g/dL (12.2-16.2) Hematocrit 23.1 % (36.0-46.0) Mean Corpuscular Volume 77.4 fL (80.0-100.0) Mean Corpuscular Hemoglobin 25.0 pg (28.0-32.0) Mean Corpuscular Hemoglobin Concent 32.3 g/dL (32.0-36.0) Red Cell Distribution Width 20.0 % (11.8-14.3) Platelet Count 291 10^3/uL (140-450) Mean Platelet Volume 8.4 fL (6.9-10.8) Neutrophils (%) (Auto) 70.9 % (37.0-80.0) Lymphocytes (%) (Auto) 21.9 % (10.0-50.0) Monocytes (%) (Auto) 5.4 % (0.0-12.0) Eosinophils (%) (Auto) 1.4 % (0.0-7.0) Basophils (%) (Auto) 0.4 % (0.0-2.0) Neutrophils # (Auto) 12.1 10 ^3/uL (1.6-8.6) Lymphocytes # (Auto) 3.7 10 ^3/uL (0.4-5.4) Monocytes # (Auto) 0.9 10 ^3/uL (0-1.3) Eosinophils # (Auto) 0.2 10 ^3/uL (0-0.8) Basophils # (Auto) 0.1 10 ^3/uL (0-0.2) Nucleated Red Blood Cells 0.1 % Total Bilirubin 0.2 mg/dL (0.2-1.0) Aspartate Amino Transferase (AST) 22 U/L (13-40) Alanine Aminotransferase (ALT) 17 U/L (7-40) Alkaline Phosphatase 123 U/L (46-116) Total Protein 4.2 g/dL (5.7-8.2) Albumin 2.5 g/dL (3.2-4.8) Uric Acid 9.5 mg/dL (3.1-7.8) Phosphorus Level 3.8 mg/dL (2.4-5.1) Magnesium Level 3.3 mg/dL (1.6-2.6) Lactate Dehydrogenase 208 U/L (120-246) Test 06/22/25 21:53 06/22/25 16:00 06/22/25 09:49 06/22/25 07:05 Magnesium Lvl (Mg Sulfate Therapy) 3.90 mg/dL (4.0-7.1) Influenza Type A Antigen Negative (Negative) Influenza Type B Antigen Negative (Negative) SARS-CoV-2 Antigen (Rapid) Negative (NEGATIVE) Prothrombin Time 9.0 sec (9.3-11.8) Prothrombin Time INR 0.83 (0.9-1.15) Activated Partial Thromboplast Time 27.6 SEC (24.5-34.5) Fibrinogen 565 mg/dL (177-375) B-Type Natriuretic Peptide 169.98 pg/mL (0-100) Troponin I High Sensitivity 8 ng/L (</=34) Test 06/21/25 19:30 06/21/25 18:31 Urine Mucus Few (None Seen) Urine Creatinine 220.36 mg/dL (30.0-125.0) Urine Protein/Creatinine Ratio 8.52 Urine Total Protein 1878.1 mg/dL (1-14) Urine Opiates Screen Neg (NEGATIVE) Urine Fentanyl Screen Neg (NEGATIVE) Urine Barbiturates Screen Neg (NEGATIVE) Urine Phencyclidine Screen Neg (NEGATIVE) Urine Amphetamines Screen Pos (NEGATIVE) Urine Benzodiazepines Screen Neg (NEGATIVE) Urine Cocaine Screen Neg (NEGATIVE) Urine Cannabinoids Screen Neg (NEGATIVE) Treponema pallidum Antibody Non-reactive (Negative) Hepatitis B Surface Antigen Negative (Negative) Hepatitis C Antibody Negative (Negative) HIV (1&2) Antibody Negative (Negative) Rubella Antibody Positive Other Laboratory Tests 06/24/25 12:52 06/24/25 05:40 Brief Hx & Hospital Course: Elevated BP. started on Magnesium sulfate and Labetalol Creatinine elevated 1.2 (severe feature criterion) Delivered spontaneously and baby given up for safe surrender patient had edema and observed in ICU for BP control HELLP panel, negative K+ elevated 5.3, treated w/ Furosemide. Resolved. Anemia s/p 2 units PRBC, asymptomatic. Stable for discharge resident services manager consults and depression screening completed Condition at Discharge: Stable Final Diagnosis/Problems List 36 wk, no care, spontanenous delivery Pre eclampsia w/ severe features Anemia acute on chronic Discharge Disposition: Home Discharge Instruct/Medications Diet: Regular Activity: Light activity Follow Up/Referral: [address] Lauren Medications: Labetalol, Iron, Ibuprofen, Colace Scheduled Ferrous Sulfate (Ferrous Sulfate), 325 MG PO BID Labetalol HCl (Labetalol HCl), 300 MG PO BID Scheduled PRN Docusate Sodium (Colace), 1 CAP PO BID PRN Ibuprofen Micronized (Motrin Tablet), 600 MG PO Q6HP PRN Discharge Statement: "Patient was advised to return to the ER or call 911 if any headaches, dizziness, shortness of breath, chest pain, abdominal pain, bleeding, fevers, or worsening of medical condition. Patient was counseled about treatment plan, medications, possible side effects, patientverbalized understanding. All questions were answered to the best of my ability. This discharge took greater then 30 minutes in planning, reviewing documentation, counseling the patient, and discussing with other team members." ASSESSMENT ASSESSMENT Assessment Visit Coding OBGYN Date of Service: Jun 24, 2025 Billing Provider: BLADIMIR YEH DO SKIN CARVER Common Visit Codes: [id number] DISCH DAY <30MIN BLADIMIR YEH DO Jun 24, 2025 15:13
[2025-06-24] MEDS ORDERED: hydrALAZINE HCL 20 MG/ML VL IV ONE (15:22)
[2025-06-24] MEDS ORDERED: LABETALOL HCL 5 MG/ML ML 20ML VIAL IV ONE (15:22)
[2025-06-24] MEDS: LIDOCAINE 2%HCL (LOCAL ANESTH.) INJ 20ML MDV ONE (15:50)
--- NOTE | 2025-06-25 13:44 | ECG ---
[facility] Test Date: 2025-06-24 Test Time: 08:24:51 Pat Name: FROY LEOS Department: Respiratoy Room: [facility] A Gender: F Gold Blower: MICHELLE : 1990 Requested By: BLADIMIR YEH Order Number: [id number] Reading MD: Lamine Mathew Measurements Intervals Gratis Rate: 77 P: 44 MT: 133 QRS: 67 QRSD: 92 T: 36 QT: 404 QTc: 458 Interpretive Statements Sinus rhythm Electronically Signed On 06-28-2025 18:25:23 PST by Lamine Mathew Please click the below link to view image of tracing.
[2025-06-26 08:07] LABS: Chlamydia Trachomatis, NAA Negative (Negative); Neisseria gonorrhoeae, NAA Negative (Negative)
--- NOTE | 2025-06-27 10:05 | DVHSR ---
APPROVED REPORT DIMENSIONS LVDd 5.2 (3.8-5.7cm) LA (2D) 4.1 (1.9-4.0cm) Aortic Root 3.2 (2.0-3.7cm) LVDs 3.9 (2.5-4.0cm) LA (MM) (1.9-4.0cm) Aortic Cusp Exc 2.0 (1.5-2.0cm) EF (%) 50.0 (55-70%) Rt. Atrium 3.5 (1.9-4.0cm) Asc. Aorta cm IVSd 1.2 (0.7-1.1cm) RV (D) (1.8-2.4cm) PWd 1.2 (0.7-1.1cm) Mitral Valve Mitral Mitral Stenosis E wave 1.40m/s MV Mean GR. mmHg A wave 1.20m/s MV Peak GR. mmHg E/A ratio 1.2 2D MVA cm2 Aortic Valve Aortic Valve Aortic Stenosis V1 1.00m/s AO Mean GR. 6mmHg V2 1.60m/s AO Peak GR. 11mmHg LVOT Diameter 2.1 (1.8-2.4cm) Doppler ROBERT 2.16cm2 Pulmonic Valve V2 0.50m/s Tricuspid Valve TR Velocity 2.40m/s RVSP 30mmHg Conclusion LV EF IS 60% NORMAL VALVES NORMAL RV FUNCTION NO EFFUSION
== END 2025-06-24 15:23 | disposition home or self-care (01) | DRG 560 ==
LOC: LDRP 18:27 → EDBD 18:27 → ICU CENTRL 06-22 15:50 → LDRP 06-23 17:55
PROVIDERS: ADMIT Obstetrics & Gynecology; ATTEND Obstetrics & Gynecology
PROC: 10E0XZZ Delivery of Products of Conception, External Approach (ICD-10-PCS; principal; 2025-06-21)
PROC: 0UQMXZZ Repair Vulva, External Approach (ICD-10-PCS; 2025-06-21)
PROC: 30233N1 Transfusion of Nonautologous Red Blood Cells into Peripheral Vein, Percutaneous Approach (ICD-10-PCS; 2025-06-22)
DX: O60.14X0 Preterm labor third trimester with preterm delivery third trimester, not applicable or unspecified (principal); Z37.0 Single live birth; O14.15 Severe pre-eclampsia, complicating the puerperium; F15.10 Other stimulant abuse, uncomplicated; Z3A.36 36 weeks gestation of pregnancy; O32.6XX0 Maternal care for compound presentation, not applicable or unspecified; E88.09 Other disorders of plasma-protein metabolism, not elsewhere classified; D62 Acute posthemorrhagic anemia; O99.324 Drug use complicating childbirth; Z20.822 Contact with and (suspected) exposure to COVID-19; O70.0 First degree perineal laceration during delivery; O90.81 Anemia of the puerperium; O99.285 Endocrine, nutritional and metabolic diseases complicating the puerperium; E87.5 Hyperkalemia
CPT/HCPCS: 36415; 59025; 59409; 71045; 80048; 80053; 80307; 81001; 81002; 82570; 83615; 83735; 83880; 84100; 84132; 84156; 84484; 84550; 85014; 85018; 85025; 85384; 85610; 85730; 86703; 86762; 86780; 86803; 86850; 86900; 86901; 86920; 87081; 87086; 87340; 87426; 87804; 93005; 93306; 94760; 94762; 96360; 96361; 96365; 96366; 96374; 96375; G0378